=== PATIENT | female | born 1955 | race Caucasian/White ===

== ENCOUNTER 2023-10-17 12:59 | Outpatient (REF) | payer MEDICARE, SELFPAY ==
--- NOTE | ~2023-10-17 | CT_ITS ---
EXAMINATION: CT CHEST WITHOUT CONTRAST CLINICAL INFORMATION: Nodule of the lung. COMPARISON: No prior CT available. TECHNIQUE: Multidetector volumetric CT imaging of the chest was done. Axial MIP volume rendering provided. Sagittal and coronal reformatted images were obtained. This CT examination was performed using dose optimization techniques as appropriate, variously including the following: *Automated exposure control *Adjustment of mA and/or kV according to patient size (this includes techniques or standardized protocols for targeted exams where dose is matched to indication/reason for exam; i.e. extremities or head) *Use of iterative reconstruction technique DLP: 233 mGy-cm FINDINGS: MANAGER UNIVERSITY: Large body habitus. LUNGS: -3 mm groundglass nodule right lower lobe basal posterior location (series 5, image 408). -2 mm lateral nodule in the left upper lobe apical anterior segment, (series 5, image 71). -3 mm pleural-based nodule in the lateral left lower lobe (series 5, image 279). -2 mm nodule in the lateral left lower lobe (series 5, image 315). -2 mm calcified granuloma in the left costophrenic sulcus (series 5, image 411). -6 mm subtle groundglass nodule left lower lobe laterally (series 4, image 32). The lungs are free of consolidations or other abnormal opacities. -Minimal scarring abutting the spine in the medial right lower lobe, related to osteophytic spurring. -Small airways appear grossly normal. No thickening or endobronchial filling defects. -No pleural effusions or pleural masses. MEDIASTINUM: -Normal thyroid gland. -Aorta is normal in caliber and course without calcification. No aneurysm. -There is no mediastinal or hilar adenopathy. -Main pulmonary artery is normal in size. -The esophagus has a normal appearance, with however there is a small type I hiatus hernia at the GE junction. -Heart size is normal. There is a small pericardial effusion. CORONARY ARTERY CALCIFICATION: None visualized on this study. AXILLA/CHEST WALL: No masses or lymphadenopathy. Increased BMI. UPPER ABDOMEN: Diffuse fatty infiltration of the liver is present. There is mild fatty atrophy of the pancreas. There is a subtle contour abnormality in the anterior left kidney, incompletely imaged, measuring 1.5 cm, not definitively a cyst. Kidneys incompletely imaged. Right kidney appears normal. OSSEOUS STRUCTURES: No suspicious lytic or blastic bone lesions. There are moderate degenerative spinal changes present. Sclerotic type endplate changes with prominent Schmorl's nodes are present at T10-T11. CT/CT chest wo IV con IMPRESSION: 1. Scattered pulmonary solid nodules measuring up to 3 mm, groundglass nodules measuring up to 6 mm. Chance of malignancy less than 1%. 1 year follow-up recommended as per Fleischner criteria if the patient is high-risk. 2. No consolidations or active lung disease. 3. Fatty infiltration of the liver. 4. Subtle contour abnormality in the anterior left kidney, not entirely imaged, and not definitely a cyst. This is indeterminant and consideration for contrast-enhanced CT should be considered, or possibly renal ultrasound. 5. Small type I hiatus hernia. 6. Additional ancillary findings as discussed in the body of the report. Fleischner guidelines were followed.
== END 2023-10-17 13:00 | disposition home or self-care (01) ==
LOC: HO.CT 12:59
PROVIDERS: PCP Family Medicine; Visit Provider Internal Medicine
DX: R91.1 Solitary pulmonary nodule (principal)
CPT/HCPCS: 71250

== ENCOUNTER → 2023-10-17 13:01 | Outpatient (BNV) | payer MEDICARE, SELFPAY | PROVIDERS: PCP Family Medicine; Visit Provider Radiology Diagnostic Radiology | DX: R91.1 Solitary pulmonary nodule (principal) | CPT/HCPCS: 71250 ==